=== PATIENT | female | born 1965 | race Caucasian/White ===

== ENCOUNTER 2017-12-04 12:23 | Emergency (ER) | payer BC ==
[~2017-12-04] VITALS: Ht 160 cm; Wt 50.0 kg
[2017-12-04 12:32] VITALS: BP 100/64
[2017-12-04] MEDS ORDERED: SODIUM CHLORIDE FLUSH 10ML SYR IVF ONE (13:00)
[2017-12-04] MEDS ORDERED: methylPREDNISolone SOD SUCC 125 MG/2 ML IVPush ONE (13:00)
[2017-12-04] MEDS ORDERED: DIPHENHYDRAMINE 50 MG/ML, 1ML IVPush ONE (13:00)
[2017-12-04] MEDS ORDERED: FAMOTIDINE 20 MG/2 ML IVPush ONE (13:00)
== END 2017-12-04 13:51 | disposition left against medical advice (07) ==
LOC: ED 13:45
DX: L29.9 Pruritus, unspecified (principal); L53.9 Erythematous condition, unspecified; Z91.030 Bee allergy status
CPT/HCPCS: 99281